=== PATIENT | female | born 1980 | race Caucasian/White ===

== ENCOUNTER 2018-12-06 08:00 | Outpatient (CLI) | payer OTHER ==
[2018-12-06 13:27] LABS: ALBUMIN 4.1 g/dL (3.2-5.5); ALBUMIN/GLOBULIN RATIO 1.6 (1.0-2.2); BILIRUBIN,TOTAL 0.9 mg/dL (0.2-1.0); CREATININE 0.7 mg/dL (0.4-1.0); TOTAL PROTEIN 6.7 g/dL (6.7-8.2)
[2018-12-06 13:38] LABS: THYROID STIMULATING HORMONE 2.87 uIU/mL (0.34-5.60)
[2018-12-06 13:49] LABS: FOLATE 15.04 ng/mL (5.90 - >24.8)
[2018-12-06 19:18] LABS: BASOPHILS % (AUTO) 0.4 %; EOSINOPHILS # (AUTO) 0.1 10^3/uL (0.0-0.7); EOSINOPHILS % (AUTO) 1.4 %; HGB - HEMOGLOBIN 13.5 g/dL (12.0-16.0); LYMPHOCYTES # (AUTO) 2.3 10^3/uL (1.5-3.5); LYMPHOCYTES % (AUTO) 34.6 %; MEAN CORPUSCULAR HEMOGLOBIN 29.6 pg (27.0-31.0); MEAN CORPUSCULAR HGB CONC 34.3 g/dL (32.0-36.0); MEAN CORPUSCULAR VOLUME 86.2 fL (81.0-99.0); MEAN PLATELET VOLUME 7.1 fL (7.9-10.8); MONOCYTES # (AUTO) 0.4 10^3/uL (0.0-1.0); MONOCYTES % (AUTO) 6.2 %; NEUTROPHILS # (AUTO) 3.7 10^3/uL (1.5-6.6); NEUTROPHILS % (AUTO) 57.4 %; PLT - PLATELET COUNT 289 10^3/uL (130-450); RED BLOOD COUNT 4.58 10^6/uL (4.20-5.40); RED CELL DISTRIBUTION WIDTH 12.9 % (12.0-15.0); WHITE BLOOD COUNT 6.5 x10^3/uL (4.8-10.8)
== END 2018-12-06 23:59 | disposition home or self-care (01) ==
LOC: LAB.N 08:00
PROVIDERS: ATTEND Nurse Practitioner
DX: R53.83 Other fatigue (principal); E55.9 Vitamin D deficiency, unspecified
CPT/HCPCS: 36415; 80053; 82306; 82607; 82746; 84443; 85025

== ENCOUNTER 2018-12-12 10:01 | Outpatient (CLI) | payer OTHER ==
--- NOTE | 2018-12-12 11:46 | Mammography Report ---
Reason: BREAST PAIN, BILATERAL NIPPLE DISCHARGE Procedure Date: 12/12/2018 Accession Number: [id number] / [id number] Procedure: KARY - Diagnostic Dig Bilat CPT Code: FULL RESULT: EXAM: Diagnostic Dig Bilat DATE: 12/12/2018 11:03 AM CLINICAL HISTORY: Diagnostic examination. History of prepectoral saline implants. The patient presents with bilateral breast pain, baseline mammogram. TECHNIQUE: (B) - Bilateral CC and MLO views were obtained. Bilateral ML views are also obtained. All views are obtained in standard and implant displaced fashion COMPARISON: None PARENCHYMAL PATTERN: (D) - The breast(s) demonstrate(s) heterogeneously dense fibroglandular parenchyma. FINDINGS: Visualized implants appear intact. There are coarse typically benign calcifications. There are no suspicious masses, calcifications, or areas of distortion. IMPRESSION: Benign findings. BI-RADS category 2. RECOMMENDATION: (ANNUAL) - Recommend routine annual screening mammography. BI-RADS CATEGORY: (2) - Benign Findings. STANDARD QUALIFYING STATEMENTS: 1. This examination was not reviewed with the aid of Computer-Aided Detection (CAD). 2. A negative or benign imaging report should not preclude biopsy if clinically suspicious findings are present. 3. Dense breasts may obscure an underlying neoplasm. 4. This examination was reviewed without the aid of 3D breast imaging (tomosynthesis).
== END 2018-12-12 10:02 | disposition home or self-care (01) ==
LOC: DI 10:01
PROVIDERS: ATTEND Nurse Practitioner
DX: N64.4 Mastodynia (principal); N64.52 Nipple discharge; Z98.82 Breast implant status
CPT/HCPCS: 77066

== ENCOUNTER 2020-05-10 14:52 | Outpatient (CLI) | payer OTHER ==
[2020-05-10 18:06] LABS: BASOPHILS % (AUTO) 0.4 %; EOSINOPHILS # (AUTO) 0.1 10^3/uL (0.0-0.7); HGB - HEMOGLOBIN 13.2 g/dL (12.0-16.0); LYMPHOCYTES # (AUTO) 1.9 10^3/uL (1.5-3.5); LYMPHOCYTES % (AUTO) 24.4 %; MEAN CORPUSCULAR HEMOGLOBIN 29.8 pg (27.0-31.0); MEAN CORPUSCULAR HGB CONC 33.5 g/dL (32.0-36.0); MEAN CORPUSCULAR VOLUME 88.9 fL (81.0-99.0); MONOCYTES # (AUTO) 0.4 10^3/uL (0.0-1.0); MONOCYTES % (AUTO) 4.5 %; NEUTROPHILS # (AUTO) 5.4 10^3/uL (1.5-6.6); NEUTROPHILS % (AUTO) 69.3 %; PLT - PLATELET COUNT 287 10^3/uL (130-450); RED BLOOD COUNT 4.43 10^6/uL (4.20-5.40); WHITE BLOOD COUNT 7.7 x10^3/uL (4.8-10.8)
[2020-05-10 18:44] LABS: ALBUMIN 4.3 g/dL (3.2-5.5); ALBUMIN/GLOBULIN RATIO 1.5 (1.0-2.2); ALKALINE PHOSPHATASE 43 IU/L (42-121); ALT ALANINE AMINOTRANSFERASE 10 IU/L (10-60); AST ASPARTATE AMINOTRANSFERASE 12 IU/L (10-42); BILIRUBIN,TOTAL 1.2 mg/dL (0.2-1.0); BUN - BLOOD UREA NITROGEN 16 mg/dL (6-20); CALCIUM 9.9 mg/dL (8.5-10.3); CARBON DIOXIDE - CO2 26 mmol/L (21-32); CHLORIDE 102 mmol/L (101-111); CHOL/HDL RATIO 2.4 (<4.4); CHOLESTEROL 142 mg/dL; CREATININE 0.8 mg/dL (0.4-1.0); GLUCOSE 99 mg/dL (70-100); HDL CHOLESTEROL 60 mg/dL; LDL CHOLESTEROL,CALCULATED 71 mg/dL; LDL/HDL RATIO 1.2 (<4.4); SODIUM 136 mmol/L (135-145); TOTAL PROTEIN 7.2 g/dL (6.7-8.2); VLDL CHOLESTEROL 11 mg/dL
== END 2020-05-10 23:59 | disposition home or self-care (01) ==
LOC: LAB.WCP 14:52
PROVIDERS: ATTEND Nurse Practitioner Family
DX: Z00.00 Encounter for general adult medical examination without abnormal findings (principal); R68.89 Other general symptoms and signs
CPT/HCPCS: 36415; 80053; 80061; 83721; 84443; 85025

== ENCOUNTER 2020-06-12 18:05 | Outpatient (CLI) | payer OTHER ==
--- NOTE | 2020-06-12 21:00 | Ultrasound Report ---
PROCEDURE: Pelvic w/Transvaginal INDICATIONS: PELVIC PAIN TECHNIQUE: Real-time scanning was performed of the pelvic organs, with image documentation. Additional endovagi nal scanning was necessary due to incomplete visualization of the adnexal and endometrial structures by transabdominal scanning. COMPARISON: None. FINDINGS: Transabdominal scanning: Limited scanning through the kidneys shows no hydronephrosis. No pathologi c free abdominal or pelvic fluid. Endovaginal scanning: Uterus: Uterus is anteverted, heterogeneous, and prominent in size at 9.4 x 8.5 x 6.1 cm. Mid anteri or subserosal fibroid measuring 5.3 x 5.2 x 5.2 cm. Mid posterior subserosal fibroid measuring 3.5 x 3.3 x 3.1 cm. The endometrium measures 11 mm in combined thickness. Small nabothian cysts. Ovaries: Within normal limits. Small ovarian follicles bilaterally. Blood flow seen in both ovaries. Right ovary measures 3.3 x 2.3 x 1.9 cm. Left ovary measures 4.7 x 2.5 x 1.3 cm. IMPRESSION: 1. Two large subserosal uterine fibroids measuring 5.3 cm and 3.5 cm. 2. Endometrial thickness measures 11 mm. 3. Ovaries are within normal limits. Reviewed by: Galo Perea MD on 06/12/2020 8:58 PM PDT Approved by: Galo Perea MD on 06/12/2020 8:58 PM PDT Station ID: [id number]
== END 2020-06-12 18:06 | disposition home or self-care (01) ==
LOC: DI 18:05
PROVIDERS: ATTEND Nurse Practitioner Family
DX: R10.2 Pelvic and perineal pain (principal); D25.2 Subserosal leiomyoma of uterus
CPT/HCPCS: 76830; 76856

== ENCOUNTER 2020-07-13 08:00 | Outpatient (CLI) | payer OTHER | END 2020-07-13 23:59 | disposition home or self-care (01) | LOC: LAB.R 08:00 | PROVIDERS: ATTEND Family Medicine | DX: N39.0 Urinary tract infection, site not specified (principal) | CPT/HCPCS: 87086 ==

== ENCOUNTER 2020-09-17 16:24 | Outpatient (CLI) | payer OTHER | END 2020-09-17 16:25 | disposition home or self-care (01) | LOC: COV 16:24 | PROVIDERS: ATTEND Obstetrics & Gynecology | DX: Z01.812 Encounter for preprocedural laboratory examination (principal); N92.0 Excessive and frequent menstruation with regular cycle; D25.9 Leiomyoma of uterus, unspecified; R10.2 Pelvic and perineal pain; Z20.822 Contact with and (suspected) exposure to COVID-19 ==

== ENCOUNTER 2020-09-20 11:47 | Outpatient (CLI) | payer OTHER ==
[2020-09-20 12:15] LABS: BASOPHILS % (AUTO) 0.3 %; EOSINOPHILS # (AUTO) 0.1 10^3/uL (0.0-0.7); EOSINOPHILS % (AUTO) 1.6 %; HGB - HEMOGLOBIN 13.4 g/dL (12.0-16.0); LYMPHOCYTES % (AUTO) 29.1 %; MEAN CORPUSCULAR HEMOGLOBIN 30.1 pg (27.0-31.0); MEAN CORPUSCULAR VOLUME 86.1 fL (81.0-99.0); MEAN PLATELET VOLUME 8.1 fL (7.9-10.8); MONOCYTES # (AUTO) 0.4 10^3/uL (0.0-1.0); MONOCYTES % (AUTO) 5.7 %; NEUTROPHILS # (AUTO) 4.4 10^3/uL (1.5-6.6); NEUTROPHILS % (AUTO) 62.9 %; PLT - PLATELET COUNT 248 10^3/uL (130-450); RED BLOOD COUNT 4.45 10^6/uL (4.20-5.40)
[2020-09-20 12:42] LABS: ALBUMIN/GLOBULIN RATIO 1.5 (1.0-2.2); ALKALINE PHOSPHATASE 46 IU/L (42-121); ALT ALANINE AMINOTRANSFERASE < 10 IU/L (10-60); AST ASPARTATE AMINOTRANSFERASE 12 IU/L (10-42); BILIRUBIN,TOTAL 0.8 mg/dL (0.2-1.0); BUN - BLOOD UREA NITROGEN 11 mg/dL (6-20); CALCIUM 9.3 mg/dL (8.5-10.3); CARBON DIOXIDE - CO2 27 mmol/L (21-32); CHLORIDE 102 mmol/L (101-111); CREATININE 0.7 mg/dL (0.4-1.0); GLUCOSE 72 mg/dL (70-100); TOTAL PROTEIN 6.7 g/dL (6.7-8.2)
== END 2020-09-20 11:48 | disposition home or self-care (01) ==
LOC: LAB 11:47
PROVIDERS: ATTEND Obstetrics & Gynecology
DX: Z01.812 Encounter for preprocedural laboratory examination (principal); N92.0 Excessive and frequent menstruation with regular cycle; D25.9 Leiomyoma of uterus, unspecified; R10.2 Pelvic and perineal pain
CPT/HCPCS: 36415; 80053; 85025; 86850; 86900; 86901

== ENCOUNTER 2020-09-22 08:16 | Day surgery (SDC) | payer OTHER ==
[2020-09-22] MEDS ORDERED: LACTATED RINGERS 1,000 ML IV ONE ×2 (08:30→14:50)
[2020-09-22] MEDS ORDERED: CELECOXIB 100 MG CAPSULE PO ONE (08:34)
[2020-09-22] MEDS ORDERED: GABAPENTIN 400 MG CAPSULE ONE (08:34)
[2020-09-22] MEDS ORDERED: ceFAZolin 2 GM/50 ML 2 GM/50 ML BAG IV ONE (08:34)
[2020-09-22] MEDS ORDERED: ACETAMINOPHEN 1,000 MG/100 ML 100 ML IV ONE (08:35)
[2020-09-22] MEDS ORDERED: PHENAZOPYRIDINE 100 MG TABLET PO ONE (08:37)
[2020-09-22 08:49] LABS: HCG UR QUAL NEGATIVE
--- NOTE | 2020-09-22 09:53 | ANESTHESIA ---
Pre-Anesthesia VS, & Labs - Diagnosis menorrhagia - Procedure [facility] Vital Signs: Temp Pulse Resp BP Pulse Ox 36.3 C L 70 15 113/76 100 09/22/20 08:48 09/22/20 08:48 09/22/20 08:48 09/22/20 08:48 09/22/20 08:48 Height: 5 ft 3.75 in Weight (kg): 71.9 kg Body Mass Index: 27.4 BMI Classification: Overweight - NPO >8 hours - Is Patient ?: No - Lab Results Current Lab Results: Laboratory Tests 09/22/20 09:15: POC Whole Bld Glucose 91 Home Medications and Allergies Home Medications: Ambulatory Orders Multivitamin 1 each PO DAILY 09/16/20 Active Medications Scopolamine HBr (Scopolamine Patch) 1 patch TOP Q3D ALEXANDER Multivitamin 1 each PO DAILY 09/16/20 Allergies/Adverse Reactions: Allergies Allergy/AdvReac Type Severity Reaction Status Date / Time Sulfa (Sulfonamide Allergy Hives Verified 09/22/20 09:03 Antibiotics) Anes History & Medical History - Anesthetic History Family history of Anesthesia Complications: Denies Family history of Malignant Hyperthermia: Denies - Medical History Cardiovascular: reports: None Pulmonary: reports: None Gastrointestinal: reports: None Urinary: reports: None Musculoskeletal: reports: None Endocrine/Autoimmune: reports: None Skin: reports: Other - Surgical History Eyes Ears Nose Throat (EENT): Tonsil/Adenoidectomy Gynecologic: Other Dermatologic: Skin cancer surgery Exam Dental: WNL Mouth Openin Fingerbreadth Neck Mobility: Normal Mallampati classification: I Thyromental Distance: 4-6 cm Respiratory: Lungs clear Cardiovascular: Regular rate Abdomen: Normal bowel sounds Extremities: No clubbing Neurological: Normal gait Mental/Cognitive Status: Alert/Oriented X3 Cognitive Status: Within normal limits Plan Anesthesia Type: General Consent for Procedure(s) Verified and Reviewed: Yes Code Status: Attempt Resuscitation ASA classification: 1-Healthy patient Is this case an emergency?: No
[2020-09-22] MEDS ORDERED: SCOPOLAMINE PATCH TOP ONE (10:03)
[2020-09-22] MEDS ORDERED: BUPIVACAINE 0.25% PF 30 ML VIAL ONE (10:55)
[2020-09-22] MEDS ORDERED: METHYLENE BLUE 0.5% 50 MG/10 ML AMPULE ONE (10:55)
[2020-09-22] MEDS ORDERED: ONDANSETRON 4 MG/2 ML VIAL ONE ×2 (11:16→14:43)
[2020-09-22] MEDS ORDERED: DEXAMETHASONE 4 MG/ML VIAL ONE (11:16)
[2020-09-22] MEDS ORDERED: LIDOCAINE-MPF 2% 5 ML VIAL ONE ×2 (11:16→11:52)
[2020-09-22] MEDS ORDERED: PROPOFOL 200 MG/20 ML VIAL IVP ONE (11:16)
[2020-09-22] MEDS ORDERED: fentaNYL 100 MCG/2 ML VIAL ONE (11:16)
[2020-09-22] MEDS ORDERED: MIDAZOLAM 2 MG/2 ML VIAL ONE (11:16)
[2020-09-22] MEDS ORDERED: ROCURONIUM 50 MG/5 ML VIAL ONE ×2 (11:17→13:54)
[2020-09-22] MEDS ORDERED: ePHEDrine 50 MG/ML VIAL IVP PRN (11:22)
[2020-09-22] MEDS ORDERED: MORPHINE 2 MG/ML CARPUJECT IVP PRN (11:22)
[2020-09-22] MEDS ORDERED: ONDANSETRON 4 MG/2 ML VIAL IVP PRN ×2 (11:22→14:33)
[2020-09-22] MEDS ORDERED: ATROPINE ABBOJECT 1 MG/10 ML SYRINGE IVP PRN (11:22)
[2020-09-22] MEDS ORDERED: METOCLOPRAMIDE 10 MG/2 ML VIAL IVP PRN (11:22)
[2020-09-22] MEDS ORDERED: fentaNYL 100 MCG/2 ML VIAL IVP PRN (11:22)
[2020-09-22] MEDS ORDERED: NALOXONE 0.4 MG/ML VIAL IVP PRN (11:22)
[2020-09-22] MEDS ORDERED: MAGNESIUM SULFATE 1 GM/2 ML VIAL ONE (11:51)
[2020-09-22] MEDS ORDERED: LACTATED RINGERS 1,000 ML IV SCH (12:00)
[2020-09-22] MEDS ORDERED: LIDOCAINE 2%-EPI 1:100000 20 ML MDV ONE ×2 (12:04→12:19)
[2020-09-22] MEDS ORDERED: BUPIVACAINE 0.25% PF 30 ML VIAL SUBQ ONE ×2 (12:18)
[2020-09-22] MEDS ORDERED: BUPIVACAINE 0.5% PF 30 ML VIAL ONE (12:19)
[2020-09-22] MEDS ORDERED: LIDOCAINE 2%-EPI 1:100000 20 ML MDV SUBQ ONE ×2 (12:19)
[2020-09-22] MEDS ORDERED: WATER FOR INJECTION,STERILE 30 ML MC ONE (13:43)
--- NOTE | 2020-09-22 14:38 | OPERATIVE REPORT ---
Operative Report - General Procedure Date: 09/22/20 Planned Procedure: TLH with BS and cysto Pre-Op Diagnosis: Menorrhagia,dysmenorrhea adn fibroids Procedure Performed: TLH with BS and cysto Post Op Diagnosis: Same - Procedure Note Primary Surgeon: Atul Parekh MD Secondary Surgeon: Kaylen Dolan MD Anesthesia Provider: Ursula Melvin Anesthesia Technique: General ET tube Pathology: uterus with tubes IV Fluids (mL): 800 Estimated Blood Loss (mL): 300 Urine Output (mL): 500
[2020-09-22] MEDS ORDERED: GLYCOPYRROLATE 1 MG/5 ML VIAL ONE (14:42)
[2020-09-22] MEDS ORDERED: NEOSTIGMINE 1 MG/1 ML 10 ML MDV ONE (14:42)
[2020-09-22] MEDS: HYDROmorphone 0.5 MG/0.5 ML SYRINGE IVP PRN ×2 (15:11→15:16)
[2020-09-22] MEDS ORDERED: HYDROmorphone 1 MG/ML CARPUJECT ONE (15:21)
[2020-09-22] MEDS: oxyCODONE 5 MG TABLET PO PRN ×2 (15:49→20:16)
--- NOTE | 2020-09-22 16:12 | OPERATIVE REPORT ---
DATE OF SERVICE: 09/22/2020 Physician: Atul Parekh MD PREOPERATIVE DIAGNOSES: 1. Menorrhagia. 2. Dysmenorrhea. 3. Fibroid uterus. POSTOPERATIVE DIAGNOSES: 1. Menorrhagia. 1. Dysmenorrhea. 2. Fibroid uterus. PROCEDURE PERFORMED: Total laparoscopic hysterectomy with bilateral salpingectomy and cystoscopy. SURGEON: Atul Parekh MD. PHOTOTYPESETTING EQUIPMENT MONITOR: Cherry Stringer MD. ANESTHESIA: General via endotracheal tube with July Melvin CRNA. ESTIMATED BLOOD LOSS: 300 mL. URINE OUTPUT: 500 mL. IV FLUIDS: 800 mL. FINDINGS: Upon entering the abdominal cavity, there were little to no adhesions. The uterus shows e vidence of large fibroids, one being on the fundus. Tubes and ovaries were free of any disease. The re is no evidence of adhesions. The appendix as well as the ureters were visualized. DESCRIPTION OF PROCEDURE: Following adequate endotracheal general anesthesia, patient was placed in the dorsal lithotomy position [facility] At this point, a pelvic examination was performed. The cervix palpated roughly 12 to 14 cm in size. The adnexa were nonpalpable. The cervix was felt to be enlarged, roughly 4 cm in diameter. At this point, she was prepped and draped in the usual fas hion. A timeout was performed, at which concerns were addressed. A speculum was then placed in the vagina. The cervix was visualized, grasped with a single-tooth tenaculum, dilated to 8 mm. The uter osacral ligaments were then both injected with 0.25% Marcaine with epinephrine with 1% lidocaine, 5 m L were placed in each uterosacral ligament. At this point, a general medical practitioner uterine manipulator was plac ed in the vagina. Care was taken to assure that the anvil went into the fornices to decrease the ris k of vaginal shortening. The balloons were insufflated. At this point, the power mule operator's gloves were c hanged, and then a stab wound was made in the subumbilical area in a vertical orientation. A 5 mm tr ocar and sheath were placed in the abdominal cavity. Following this, a laparoscope was introduced, a nd CO2 was used to insufflate the abdominal cavity. There was evidence of good insufflation. Two ad ditional ports were placed, one on the left and one on the right-hand side. These were done followin g transillumination of the abdominal wall as well as local anesthesia with Marcaine and lidocaine wit h epinephrine. Ports, 5 mm, were both placed under direct visualization. At this point, the pelvis was inspected. Uterus appeared to be large, reflecting out of the pelvis. The right fallopian tube was grasped, and then utilizing a LigaSure the mesosalpinx was cauterized and transected all the way up to the cornu of the uterus. The uteroovarian ligament was then cauterized 3 times and transected as well as the round ligament being cauterized and transected. The anterior leaf of the broad ligame nt was opened and brought out across the lower uterine segment. Uterine vessels were visualized at t his time. These were then cauterized, but not transected. The posterior leaf of the broad ligament was also cauterized and transected and carried down to the uterosacral ligaments. At this point, the uterus was moved to the patient's right-hand side, and Dr. Stringer utilized the LigaSure to cauteri ze and transect the mesosalpinx as well as the uteroovarian ligament and the round ligament. The ant erior leaf of the broad ligament was opened, as was the posterior leaf. The uterine vessels were cau terized and transected with the LigaSure. At this point, the remainder of the bladder flap was devel oped, and the bladder flap was pushed down off the lower uterine segment and off the apex of the vagi na. At this point, the anvil was palpated through the vagina, and then a Harmonic scalpel was used t o amputate the cervix from the apex of the vagina. There was evidence of good hemostasis of the enti re progress. At this point, the uterus was removed out of the pelvis and vagina, and then an Asepto syringe bulb was placed in the vagina to maintain pneumoperitoneum. The apex of the vagina was then closed utilizing V-Loc suture with intracorporeal suturing. The pelvis was inspected. No active ble eding was noted, but Surgicel was then placed over the incisions. The appendix was inspected and not ed to be normal. The uterus had previously been inspected. Those both appear to be normal. The edg e of the liver appeared to be free of disease. The abdominal cavity was suctioned clear of clot, and then photographs were taken. At this point, attention was turned to the bladder, the Peters catheter was removed, and then a cystoscope was placed. There was evidence of excellent urine flow from both ureteral orifices. There was no evidence of any defects in the bladder or stitches. The laparoscop ic incisions were closed utilizing 4-0 Monocryl subcuticular with Steri-Strips. There was some oozin g noted from the left port, so a 4x4 was folded and placed over this incision. The patient tolerated the procedure well and was taken to recovery in stable condition. Sponge and needle counts were cor rect. TD: 09/22/2020 15:41
--- NOTE | 2020-09-22 17:31 | ANESTHESIA POST OP EVALUATION ---
Anesthesia Post Eval - Post Anesthesia Eval Vitals: Last Vital Signs Temp 36.5 C 09/22/20 16:58 Pulse 60 09/22/20 16:58 Resp 18 09/22/20 16:58 BP 120/73 09/22/20 16:58 Pulse Ox 100 09/22/20 16:58 CV Function Including HR & BP: positive: Stable Pain Control: positive: Satisfactory Nausea & Vomiting: positive: Negative Mental Status: positive: Patient Participates Respiratory Status: Airway Patent Hydration Status: Satisfactory Anesthesia Complications: positive: None
[2020-09-22] MEDS: SCOPOLAMINE PATCH TOP SCH (18:04)
[2020-09-23] MEDS: oxyCODONE 5 MG TABLET PO PRN ×5 (01:06→20:19)
[2020-09-23] MEDS: SCOPOLAMINE PATCH TOP SCH (15:09)
[2020-09-23] MEDS ORDERED: KETOROLAC 30 MG/ML VIAL IVP SCH (17:00)
--- NOTE | 2020-09-23 17:17 | PROVIDER PROGRESS NOTE ---
Subjective - General Procedure Date: 09/22/20 Post Op Days: 1 Procedure Performed: TLH BS, CYSTO - Review of Systems Wound/Incisions: positive: Healing well General: positive: No symptoms (Pt C/O bladder pain. unable to void.) Genitourinary: negative: Flank pain Objective - Patient Data Vital Signs: Vital Signs x48h Temp Pulse Resp BP Pulse Ox 09/23/20 11:39 36.4 C L 63 18 103/63 100 Weight: Weight 09/21/20 09/22/20 09/23/20 23:59 23:59 23:59 Weight (kg) 71.9 kg Intake & Output: Intake and Output Totals x24h 09/21/20 09/22/20 09/23/20 23:59 23:59 23:59 Intake Total 1680 1100 Output Total 1175 1850 Balance 505 -750 - Current Medications Current Medications: Current Medications Generic Name Dose Route Start Last Admin Trade Name Freq PRN Reason Stop Dose Admin Ketorolac Tromethamine 30 mg 09/23/20 17:00 09/23/20 16:58 Ketorolac 30 Mg/Ml Vial IVP 09/28/20 16:59 30 mg ONCE ALEXANDER Administration Oxycodone HCl 5 mg 09/22/20 14:33 09/23/20 15:08 Oxycodone 5 Mg Tablet PO 5 mg Q4HR PRN Administration PAIN Scopolamine HBr 1 patch 09/22/20 10:00 09/23/20 15:09 Scopolamine Patch TOP 1 patch Q3D ALEXANDER Administration Impression/Plan - Problem List Problem List: POD # 1 SP TLH with BS and cysto. Peters place and 1400 ml urine drained. will keep over night. added toradol and motrin
[2020-09-24] MEDS: oxyCODONE 5 MG TABLET PO PRN (01:48)
[2020-09-24] MEDS: IBUPROFEN 800 MG TABLET PO PRN ×2 (01:48→08:35)
[2020-09-24 08:07] VITALS: BP 111/68
--- NOTE | 2020-09-24 08:15 | PROVIDER PROGRESS NOTE ---
Subjective - General Procedure Date: 09/22/20 Post Op Days: 2 Procedure Performed: TLH BS, CYSTO - Review of Systems Wound/Incisions: positive: Healing well General: positive: No symptoms (PAIN /10. RESTED WELL LAST NIGTH. TIDWELL DRAINING WELL.) Genitourinary: negative: Flank pain Objective - Patient Data Reviewed Vital Signs: Yes Vital Signs: Vital Signs x48h Temp Pulse Resp BP Pulse Ox 09/24/20 08:06 36.7 C 69 16 111/68 98 09/24/20 05:00 36.8 C 65 16 110/66 99 09/24/20 01:00 36.9 C 64 16 108/67 98 Weight: Weight 09/22/20 09/23/20 09/24/20 23:59 23:59 23:59 Weight (kg) 71.9 kg Intake & Output: Intake and Output Totals x24h 09/22/20 09/23/20 09/24/20 23:59 23:59 23:59 Intake Total 1680 2100 500 Output Total 1175 4400 1650 Balance 505 -2300 -1150 - Current Medications Current Medications: Current Medications Generic Name Dose Route Start Last Admin Trade Name Freq PRN Reason Stop Dose Admin Ibuprofen 800 mg 09/23/20 16:51 09/24/20 01:48 Ibuprofen 800 Mg Tablet PO 800 mg BID PRN Administration PAIN Ketorolac Tromethamine 30 mg 09/23/20 17:00 09/23/20 16:58 Ketorolac 30 Mg/Ml Vial IVP 09/28/20 16:59 30 mg ONCE ALEXANDER Administration Oxycodone HCl 5 mg 09/22/20 14:33 09/24/20 01:48 Oxycodone 5 Mg Tablet PO 5 mg Q4HR PRN Administration PAIN Scopolamine HBr 1 patch 09/22/20 10:00 09/23/20 15:09 Scopolamine Patch TOP 1 patch Q3D ALEXANDER Administration - Physical Exam Wound/Incisions: positive: Healing well, Dressing dry and intact, No drainage General Appearance: positive: No acute distress, Alert Cardiovascular: positive: Regular rate & rhythm, No murmur, No gallop Abdomen: positive: Non-tender, No organomegaly (WOUNDS WITHOUT ERYTHEMA) Back: negative: CVA tenderness (R), CVA tenderness (L) Skin: positive: Color nml Extremities: negative: Calf tenderness, Joe's sign/cords Neurologic/Psychiatric: positive: Oriented x3 Impression/Plan - Problem List Problem List: POD 32 GOOD PAIN CONTROL. TIDWELL DRAINING WILL SEND HOME. DIACHARGE MEDS: OXYCODONE 5 MG COLACE 100 MG MOTRIN 800 MG HOME SUPPLY. RTC ONE WEEK FOR TIDWELL REMOVAL.
--- NOTE | 2020-09-24 08:19 | Discharge Plan ---
Discharge Plan Problem Reviewed?: Yes Disposition: Home, Self Care Condition: Good Diet: Regular Shower Restrictions: No Driving Restrictions: Yes (NOT WHILE TAKING NARCOTICS) Weight Bearing: Full Weight No Smoking: If you smoke, Please STOP! Call for help. Follow-up with: LAM FINE MSN, [employer] WRECKER [Primary Care Provider] -
== END 2020-09-24 09:35 | disposition home or self-care (01) ==
LOC: SDS 08:16 → MS2 15:14 → OBS 15:15 → SDS 09-24 09:35
PROVIDERS: ATTEND Obstetrics & Gynecology
PROC: 0UT74ZZ Resection of Bilateral Fallopian Tubes, Percutaneous Endoscopic Approach (ICD-10-PCS; 2020-09-22)
PROC: 0UT94ZZ Resection of Uterus, Percutaneous Endoscopic Approach (ICD-10-PCS; principal; 2020-09-22 09:30)
DX: N92.0 Excessive and frequent menstruation with regular cycle (principal); D25.1 Intramural leiomyoma of uterus; N94.6 Dysmenorrhea, unspecified; R10.2 Pelvic and perineal pain; E66.3 Overweight; Z68.27 Body mass index [BMI] 27.0-27.9, adult
CPT/HCPCS: 58573; 81025; A9270; J0131; J0690; J1170; J3490; J7120

== ENCOUNTER 2020-09-28 08:00 | Outpatient (CLI) | payer OTHER | END 2020-09-28 08:01 | disposition home or self-care (01) | LOC: LAB.R 08:00 | PROVIDERS: ATTEND Obstetrics & Gynecology | DX: R30.0 Dysuria (principal) | CPT/HCPCS: 87077; 87086; 87181 ==

== ENCOUNTER 2020-10-11 18:36 | Emergency (ER) | payer OTHER ==
[2020-10-11 19:09] VITALS: BP 111/63
[2020-10-11 19:10] LABS: BASOPHILS % (AUTO) 0.6 %; EOSINOPHILS # (AUTO) 0.1 10^3/uL (0.0-0.7); HGB - HEMOGLOBIN 14.3 g/dL (12.0-16.0); LYMPHOCYTES # (AUTO) 2.2 10^3/uL (1.5-3.5); LYMPHOCYTES % (AUTO) 34.2 %; MEAN CORPUSCULAR HEMOGLOBIN 30.2 pg (27.0-31.0); MEAN CORPUSCULAR HGB CONC 35.7 g/dL (32.0-36.0); MEAN CORPUSCULAR VOLUME 84.6 fL (81.0-99.0); MEAN PLATELET VOLUME 7.8 fL (7.9-10.8); MONOCYTES # (AUTO) 0.4 10^3/uL (0.0-1.0); MONOCYTES % (AUTO) 6.7 %; NEUTROPHILS # (AUTO) 3.6 10^3/uL (1.5-6.6); NEUTROPHILS % (AUTO) 55.9 %; PLT - PLATELET COUNT 372 10^3/uL (130-450); RED BLOOD COUNT 4.74 10^6/uL (4.20-5.40); RED CELL DISTRIBUTION WIDTH 12.1 % (12.0-15.0); WHITE BLOOD COUNT 6.4 x10^3/uL (4.8-10.8)
[2020-10-11 19:11] LABS: BILIRUBIN,URINE NEGATIVE (NEGATIVE); GLUCOSE, URINE (UA) NEGATIVE (NEGATIVE); KETONES,URINE (UA) NEGATIVE (NEGATIVE); LEUKOCYTE ESTERASE, URINE SMALL (NEGATIVE); NITRITE,URINE NEGATIVE (NEGATIVE); OCCULT BLOOD,URINE LARGE (NEGATIVE); PROTEIN,URINE NEGATIVE (NEGATIVE); UROBILINOGEN,URINE 0.2 (NORMAL) E.U./dL (NORMAL)
[2020-10-11 19:12] LABS: CLARITY,URINE HAZY (CLEAR)
--- NOTE | 2020-10-11 19:15 | ED Physician Documentation ---
History of Present Illness - Stated complaint Stated Complaint: FEMALE /POST OP,SOA - Chief complaint Chief Complaint: Abd Pain - History obtained from History obtained from: Patient - Additonal information Additional information: 39-year-old female presents to the emergency department for evaluation of post hysterectomy vaginal bleeding. She underwent a TLH 09/22/[address] Parekh. Postop course was complicated by urinary retention requiring a Peters catheter as well as a subsequent urinary tract infection. She reports that postoperatively she had very little spotting or bleeding until 5 days ago when she began to develop menses like bleeding often passing large clots. She has no fevers or vomiting. After antibiotic she reports that her urinary symptoms have begun to improve. She does feel fatigued and is somewhat dizzy with exertion. She does endorse lower abdominal pelvic discomfort but not new or worsening since the procedure and somewhat improved Review of Systems Constitutional: denies: Fever, Chills Eyes: reports: Reviewed and negative Ears: reports: Reviewed and negative Nose: reports: Reviewed and negative Throat: reports: Reviewed and negative Cardiac: reports: Reviewed and negative Respiratory: reports: Reviewed and negative PD PAST MEDICAL HISTORY - Past Medical History Past Medical History: No Cardiovascular: None Respiratory: None Endocrine/Autoimmune: None GI: None : None HEENT: None Psych: Depression Musculoskeletal: None Derm: Other - Past Surgical History Past Surgical History: Yes /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: Hysterectomy, Other HEENT: Tonsil/Adenoidectomy Derm: Skin cancer surgery - Present Medications Home Medications: Ambulatory Orders Medication Instructions Recorded Confirmed Multivitamin 1 each PO DAILY 09/16/20 10/11/20 - Allergies Allergies/Adverse Reactions: Allergies Allergy/AdvReac Type Severity Reaction Status Date / Time Sulfa (Sulfonamide Allergy Hives Verified 10/11/20 18:41 Antibiotics) - Social History Does the pt smoke?: No Smoking Status: Never smoker Does the pt drink ETOH?: No Does the pt have substance abuse?: No - Immunizations Immunizations are current?: Yes - POLST Patient has POLST: No PD ED PE NORMAL - General General: Alert and oriented X 3, No acute distress, Well developed/nourished - Cardiac Cardiac: RRR, No murmur - Respiratory Respiratory: No respiratory distress, Clear bilaterally - Abdomen Abdomen: Normal bowel sounds, Soft, Non tender (Mild generalized lower pelvic discomfort without guarding or rebound. Well-healed laparoscopic incisions are seen without surrounding erythema or drainage) - Female Female : Other (Small amount of blood seen on a menstrual pad that was recently changed.) - Derm Derm: Normal color, Warm and dry, No rash - Neuro Neuro: Alert and oriented X 3 Eye Opening: Spontaneous Motor: Obeys Commands Verbal: Oriented GCS Score: 15 Results - Vitals Vitals: Vital Signs - 24 hr 10/11/20 10/11/20 18:41 19:08 Temperature 36.5 C Heart Rate 72 71 Respiratory 16 16 Rate Blood Pressure 138/98 H 111/63 O2 Saturation 100 96 Oxygen O2 Source Room air - Labs Labs: Laboratory Tests 10/11/20 10/11/20 10/11/20 19:00 19:04 19:04 WBC 6.4 RBC 4.74 Hgb 14.3 Hct 40.1 MCV 84.6 MCH 30.2 MCHC 35.7 RDW 12.1 Plt Count 372 MPV 7.8 L Neut # (Auto) 3.6 Lymph # (Auto) 2.2 [place] # (Auto) 0.4 Eos # (Auto) 0.1 Baso # (Auto) 0.0 Absolute Nucleated RBC 0.00 Nucleated RBC % 0.0 Sodium 136 Potassium 4.1 Chloride 99 L Carbon Dioxide 26 Anion Gap 11.0 BUN 12 Creatinine 0.8 Estimated GFR (MDRD) 79 L Glucose 98 Calcium 9.9 Total Bilirubin 0.9 AST 15 ALT 10 Alkaline Phosphatase 56 Total Protein 7.8 Albumin 4.6 Globulin 3.2 Albumin/Globulin Ratio 1.4 Lipase 36 Urine Color YELLOW Urine Clarity HAZY Urine pH 6.0 Ur Specific [place] <=1.005 Urine Protein NEGATIVE Urine Glucose (UA) NEGATIVE Urine Ketones NEGATIVE Urine Occult Blood LARGE H Urine Nitrite NEGATIVE Urine Bilirubin NEGATIVE Urine Urobilinogen 0.2 (NORMAL) Ur Leukocyte Esterase SMALL H Urine RBC 11-25 H Urine WBC 6-10 H Ur Squamous Epith Cells MANY Squamous H Urine Bacteria Moderate H Ur Microscopic Review INDICATED Urine Culture Comments NOT INDICATED PD MEDICAL DECISION MAKING - ED course Complexity details: reviewed results, re-evaluated patient, considered differential, d/w patient, d/w risk assessment consultant (Siomara LIEBERMAN) ED course: 39-year-old female presents the emergency department for evaluation of 5 days. Like vaginal bleeding after having a TLH 09/22/2020. This bleeding began 5 days ago and was associated with shoveling snow during her recent snow event. However her hemoglobin was rather healthy. I did consult on the phone with Dr. Stringer of [facility]. Given recent hysterectomy she elected to evaluate the patient in the emergency department and did do a pelvic exam in which she found that there was a small area of bleeding or possibly even granuloma that was cauterized with silver nitrate stick. Her manual exam did reveal that the cuff was intact without any signs of dehiscence. Patient was advised that she should continue to abstain from heavy lifting or shoveling. Continue to follow- up with OB as already scheduled. Emergent return precautions discussed for worsening symptoms. Departure - Departure Disposition: 01 Home, Self Care Clinical Impression: Vaginal bleeding, S/P hysterectomy Condition: Stable Record reviewed to determine appropriate education?: Yes Comments: Mariia you were seen in the emergency department for vaginal bleeding after recent hysterectomy. Dr. Stringer with the OB department did do a pelvic exam and did find a small area of bleeding that she cauterized with a chemical called silver nitrate. However as we discussed reassuringly your cuff is fully intact. The bleeding may be related to the shoveling you did recently with our snow event. It is very important that you avoid any heavy lifting pushing or pulling greater than 10 pounds until cleared by OB. Please continue to follow-up with OB as you are already scheduled. Do not hesitate to call their office or return to the emergency department for return of vaginal bleeding that is period like.
[2020-10-11 19:22] LABS: BACTERIA,URINE Moderate /HPF (None Seen); SQUAMOUS EPITHELIAL CELL,UR MANY Squamous (<= Few)
[2020-10-11 19:24] LABS: ALBUMIN 4.6 g/dL (3.2-5.5); ALBUMIN/GLOBULIN RATIO 1.4 (1.0-2.2); BILIRUBIN,TOTAL 0.9 mg/dL (0.2-1.0); CALCIUM 9.9 mg/dL (8.5-10.3); CREATININE 0.8 mg/dL (0.4-1.0); TOTAL PROTEIN 7.8 g/dL (6.7-8.2)
[2020-10-11] MEDS ORDERED: SILVER NITRATE APPLICATOR TOP STA (19:50)
--- NOTE | 2020-10-11 20:09 | CONSULTATION NOTE ---
Referring Provider Name of Referring Provider:: Stefanie Russell Consult Date: 10/11/20 History of Present Illness - Admitted From Admitted From:: ER - History Obtained From History obtained from: Patient and records - History of Present Illness HPI Comment/Other: Patient is a 39 yo s/p TLH here with vaginal bleeding. She underwent a TLH 09/22/[address] Parekh. Postop course was complicated by urinary retention requiring a Peters catheter as well as a subsequent urinary tract infection. She reports that postoperatively she had very little spotting or bleeding until 5 days ago when she began to develop menses like bleeding often passing large clots. She has no fevers or vomiting. After antibiotic she reports that her urinary symptoms have begun to improve. She does endorse lower abdominal pelvic discomfort but not new or worsening since the procedure and somewhat improved. Bleeding started about 5 days ago when she had been shoveling snow to clear her car. She has returned to work at the [employer] on light duty. She has been judicious about avoiding heavy lifting but does walk significant distances and climbs stairs frequently. No LOF from the vagina. Bleeding started out as spotting and then flow became consistent with menses. At one point, she was passing clots into the toilet when voiding. 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, Other HEENT: reports: Tonsil/Adenoidectomy Derm: reports: Skin cancer surgery - POLST Patient has POLST: No Meds/Allgy - Home Medications Home Medications: Ambulatory Orders Medication Instructions Recorded Confirmed Multivitamin 1 each PO DAILY 09/16/20 10/11/20 - Allergies Allergies/Adverse Reactions: Allergies Allergy/AdvReac Type Severity Reaction Status Date / Time Sulfa (Sulfonamide Allergy Hives Verified 10/11/20 18:41 Antibiotics) Review of Systems - Other Findings Other Findings: As per HPI, otherwise remaining systems are negative Exam - Vital Signs Reviewed Vital Signs: Yes Vital Signs: Vital Signs x48h Temp Pulse Resp BP Pulse Ox 10/11/20 19:08 71 16 111/63 96 10/11/20 18:41 97.7 F 72 16 138/98 H 100 - Physical Exam General Appearance: positive: No acute distress Respiratory: positive: No respiratory distress Cardiovascular: positive: Other (RR) Abdomen: positive: Non-tender, No distention, Other (soft) Skin: positive: Color nml, Warm, Dry Extremities: positive: No pedal edema Neurologic/Psychiatric: positive: Mood/affect nml, Other (Alert and oriented) Comments/Other: PELVIC: NEFG, NL BSUMA. No active bleeding at introitus. Speculum inserted, small amoutn of dark blood in vaginal vault. No active flow. Left corner of vagina cuff ahd BRB. Blood cleared with swab, no active bleeding noted under extended observation. Possibility of raw edge vs granuloma at left corner. Silver nitrate applied out of abundance of caution. BME reveals cuff to be intact by palpation. No fluctuance, induration, warmth, or TTP. Exam glove showed dark, old blood only. Conclusion/Plan - Diagnosis Diagnosis: Post op bleeding - Plan Plan: Vaginal cuff visualized and palpates as intact No need for surgical intervention at this time Suspect irritation of cuff edge with physical exertion greater than optimal in the recent post op period Recommend that patient try to restrict higher exertion activities Reviewed that walking and activity will increase friction at cuff edges and may result in bleeding Silver nitrate applied to cuff edge to reduce risk. Reviewed warning signs and indications to call clinic vs return to ED Fu with Dr. Parekh in clinic - Lab Results Lab results reviewed: Yes Fish Bones: 10/11/20 19:04 10/11/20 19:04
== END 2020-10-11 20:36 | disposition home or self-care (01) ==
LOC: ED 18:36
DX: N99.820 Postprocedural hemorrhage of a genitourinary system organ or structure following a genitourinary system procedure (principal); Y83.6 Removal of other organ (partial) (total) as the cause of abnormal reaction of the patient, or of later complication, without mention of misadventure at the time of the procedure
CPT/HCPCS: 36415; 80053; 81001; 81003; 83690; 85025; 87086; 99283; 99284

== ENCOUNTER 2023-01-18 08:00 | Outpatient (CLI) | payer OTHER ==
[2023-01-18 18:14] LABS: BILIRUBIN,URINE NEGATIVE (NEGATIVE); GLUCOSE, URINE (UA) NEGATIVE (NEGATIVE); KETONES,URINE (UA) NEGATIVE (NEGATIVE); LEUKOCYTE ESTERASE, URINE NEGATIVE (NEGATIVE); NITRITE,URINE NEGATIVE (NEGATIVE); OCCULT BLOOD,URINE NEGATIVE (NEGATIVE); PH,URINE 5.5 PH (5.0-7.5); PROTEIN,URINE NEGATIVE (NEGATIVE); UROBILINOGEN,URINE 0.2 (NORMAL) E.U./dL (NORMAL)
[2023-01-18 18:22] LABS: BACTERIA,URINE Few /HPF (None Seen); CLARITY,URINE CLEAR (CLEAR); RBC,URINE 0-5 /HPF (0-5); SQUAMOUS EPITHELIAL CELL,UR FEW Squamous (<= Few); WBC,URINE 0-3 /HPF (0-5)
== END 2023-01-18 23:59 | disposition home or self-care (01) ==
LOC: LAB.R 08:00
PROVIDERS: ATTEND Physician Assistant
DX: R35.0 Frequency of micturition (principal)
CPT/HCPCS: 81001; 87086

== ENCOUNTER 2023-02-06 07:57 | Outpatient (CLI) | payer OTHER ==
[2023-02-06 11:55] LABS: BASOPHILS % (AUTO) 0.6 %; EOSINOPHILS # (AUTO) 0.1 10^3/uL (0.0-0.7); EOSINOPHILS % (AUTO) 1.8 %; HCT - HEMATOCRIT 40.8 % (37.0-47.0); LYMPHOCYTES # (AUTO) 2.7 10^3/uL (1.5-3.5); MEAN CORPUSCULAR HEMOGLOBIN 29.2 pg (27.0-31.0); MEAN CORPUSCULAR HGB CONC 34.3 g/dL (32.0-36.0); MONOCYTES # (AUTO) 0.4 10^3/uL (0.0-1.0); MONOCYTES % (AUTO) 5.4 %; NEUTROPHILS # (AUTO) 3.6 10^3/uL (1.5-6.6); NEUTROPHILS % (AUTO) 52.5 %; PLT - PLATELET COUNT 331 10^3/uL (130-450); RED CELL DISTRIBUTION WIDTH 12.1 % (12.0-15.0); WHITE BLOOD COUNT 6.9 x10^3/uL (4.8-10.8)
[2023-02-06 11:56] LABS: RHEUMATOID FACTOR NEGATIVE (Negative)
[2023-02-06 12:10] LABS: BILIRUBIN,URINE NEGATIVE (NEGATIVE); GLUCOSE, URINE (UA) NEGATIVE (NEGATIVE); KETONES,URINE (UA) NEGATIVE (NEGATIVE); LEUKOCYTE ESTERASE, URINE NEGATIVE (NEGATIVE); NITRITE,URINE NEGATIVE (NEGATIVE); OCCULT BLOOD,URINE NEGATIVE (NEGATIVE); PROTEIN,URINE NEGATIVE (NEGATIVE); UROBILINOGEN,URINE 0.2 (NORMAL) E.U./dL (NORMAL)
[2023-02-06 12:12] LABS: CLARITY,URINE CLEAR (CLEAR)
[2023-02-06 12:20] LABS: THYROID STIMULATING HORMONE 2.19 uIU/mL (0.34-5.60)
[2023-02-06 12:24] LABS: BACTERIA,URINE Few /HPF (None Seen); RBC,URINE 0-5 /HPF (0-5); SQUAMOUS EPITHELIAL CELL,UR MOD Squamous (<= Few); WBC,URINE 0-3 /HPF (0-5)
[2023-02-06 21:14] LABS: ALBUMIN 4.1 g/dL (3.2-5.5); ALBUMIN/GLOBULIN RATIO 1.3 (1.0-2.2); ALKALINE PHOSPHATASE 44 IU/L (42-121); ALT ALANINE AMINOTRANSFERASE 13 IU/L (10-60); AST ASPARTATE AMINOTRANSFERASE 14 IU/L (10-42); BILIRUBIN,TOTAL 0.8 mg/dL (0.2-1.0); BUN - BLOOD UREA NITROGEN 13 mg/dL (6-20); CALCIUM 9.2 mg/dL (8.5-10.3); CARBON DIOXIDE - CO2 28 mmol/L (21-32); CHLORIDE 103 mmol/L (101-111); CHOL/HDL RATIO 2.3 (<4.4); CHOLESTEROL 135 mg/dL; CREATININE 0.8 mg/dL (0.4-1.0); GFR - MDRD 78 (>89); GLUCOSE 97 mg/dL (70-100); HDL CHOLESTEROL 58 mg/dL; LDL CHOLESTEROL,CALCULATED 63 mg/dL; LDL/HDL RATIO 1.1 (<4.4); POTASSIUM 4.2 mmol/L (3.5-5.0); SODIUM 137 mmol/L (135-145); TOTAL PROTEIN 7.3 g/dL (6.7-8.2); TRIGLYCERIDES 71 mg/dL; VLDL CHOLESTEROL 14 mg/dL
[2023-02-06 21:35] LABS: CRP - C-REACTIVE PROTEIN < 1.0 mg/dL (0-1.0)
[2023-02-07 17:09] LABS: ANTI-DNA (DS) AB QN 3 IU/mL (0-9); CENTROMERE B ANTIBODIES <0.2 AI (0.0-0.9); CHROMATIN ANTIBODIES <0.2 AI (0.0-0.9); JO-1 AB <0.2 AI (0.0-0.9); RIBOSOMAL P ANTIBODIES <0.2 AI (0.0-0.9); RNP ANTIBODIES <0.2 AI (0.0-0.9); SCLERODERMA-70 ANTIBODIES <0.2 AI (0.0-0.9); SJOGREN'S ANTI-SS-A <0.2 AI (0.0-0.9); SJOGREN'S ANTI-SS-B <0.2 AI (0.0-0.9); SMITH ANTIBODIES <0.2 AI (0.0-0.9); SMITH/RNP ANTIBODIES <0.2 AI (0.0-0.9)
[2023-02-07 20:08] LABS: CYCLIC CITRULLINATED PEP IGG/A 6 units (0-19)
== END 2023-02-06 07:58 | disposition home or self-care (01) ==
LOC: LAB.N 07:57
PROVIDERS: ATTEND Physician Assistant
DX: M25.50 Pain in unspecified joint (principal); Z13.9 Encounter for screening, unspecified; R35.0 Frequency of micturition; M35.3 Polymyalgia rheumatica
CPT/HCPCS: 36415; 80053; 80061; 81001; 83516; 83721; 84443; 85025; 85651; 86140; 86200; 86225; 86235; 86430; 87086

== ENCOUNTER 2023-03-27 19:50 | Emergency (ER) | payer OTHER ==
[2023-03-27 20:08] VITALS: BP 149/95; O2SAT 99
[2023-03-27 20:36] LABS: BILIRUBIN,URINE NEGATIVE (NEGATIVE); GLUCOSE, URINE (UA) NEGATIVE (NEGATIVE); KETONES,URINE (UA) NEGATIVE (NEGATIVE); LEUKOCYTE ESTERASE, URINE NEGATIVE (NEGATIVE); NITRITE,URINE NEGATIVE (NEGATIVE); OCCULT BLOOD,URINE TRACE-INTA (NEGATIVE); PROTEIN,URINE NEGATIVE (NEGATIVE); UROBILINOGEN,URINE 0.2 (NORMAL) E.U./dL (NORMAL)
[2023-03-27 20:38] LABS: CLARITY,URINE CLEAR (CLEAR); HCG UR QUAL NEGATIVE
[2023-03-27] MEDS: LIDOCAINE 1% 2 ML VIAL MC ONE (20:38)
[2023-03-27] MEDS: cefTRIAXone 1 GM VIAL IM STA (20:39)
--- NOTE | 2023-03-27 20:48 | ED Physician Documentation ---
History of Present Illness - Stated complaint Stated Complaint: - Chief complaint Chief Complaint: General - History obtained from History obtained from: Patient - History of Present Illness Timing: How many days ago (3) Pain level max: 4 Pain level now: 4 - Additonal information Additional information: 42-year-old female states that approximately 3 days ago started having dysuria, urinary frequency and hematuria. She has had low back discomfort as well. Chills, mild nausea. No change in sexual partners. No vaginal bleeding or discharge. She has had a hysterectomy. Feels similar to prior UTIs. No fevers. No vomiting. No diarrhea or constipation. No history of kidney stones. 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 HEENT: Tonsil/Adenoidectomy Derm: Skin cancer surgery - Present Medications Home Medications: Ambulatory Orders Medication Instructions Recorded Confirmed Multivitamin 1 each PO DAILY 09/16/20 10/11/20 Cefpodoxime Proxetil [Vantin] 100 mg PO Q12H #14 tablet 03/27/23 - Allergies Allergies/Adverse Reactions: Allergies Allergy/AdvReac Type Severity Reaction Status Date / Time Sulfa (Sulfonamide Allergy Hives Verified 10/11/20 18:41 Antibiotics) - Social History Does the pt smoke?: No Smoking Status: Never smoker Does the pt drink ETOH?: No Does the pt have substance abuse?: No - Immunizations Immunizations are current?: Yes - POLST Patient has POLST: No PD ED PE NORMAL - Vitals Vital signs reviewed: Yes - General General: Alert and oriented X 3, No acute distress - HEENT HEENT: Moist mucous membranes - Neck Neck: Supple, no meningeal sign - Cardiac Cardiac: RRR - Respiratory Respiratory: No respiratory distress, Clear bilaterally - Abdomen Abdomen: Soft, Non tender, Non distended - Back Back: No CVA TTP, No spinal TTP - Derm Derm: Warm and dry - Neuro Neuro: Alert and oriented X 3 - Psych Psych: Normal mood, Normal affect Results - Vitals Vitals: Vital Signs - 24 hr 03/27/23 20:00 Temperature 37.2 C Heart Rate 82 Respiratory 16 Rate Blood Pressure 149/95 H O2 Saturation 99 Oxygen O2 Source Room air - Labs Labs: Laboratory Tests 03/27/23 03/27/23 20:28 20:28 Urine Color YELLOW Urine Clarity CLEAR Urine pH 5.0 Ur Specific [place] 1.025 Urine Protein NEGATIVE Urine Glucose (UA) NEGATIVE Urine Ketones NEGATIVE Urine Occult Blood TRACE-INTA Urine Nitrite NEGATIVE Urine Bilirubin NEGATIVE Urine Urobilinogen 0.2 (NORMAL) Ur Leukocyte Esterase NEGATIVE Ur Microscopic Review NOT INDICATED Urine Culture Comments NOT INDICATED Urine HCG, Qual NEGATIVE PD Medical Decision Making - ED course Complexity details: considered differential, d/w patient ED course: Patient is well-appearing, nontoxic. Afebrile. Symptoms are consistent with UTI. She had urinated just prior to giving a urine sample, we will treat based on symptoms. Given the chills and back pain, given a dose of Rocephin here. We will place on oral antibiotics for home. Patient will follow-up with her doctor for further care especially if she fails to improve as expected. Patient counseled regarding signs and symptoms for which I believe and urgent re- evaluation would be necessary. Patient with good understanding of and agreement to plan and is comfortable going home at this time This document was made in part using voice recognition software. While efforts are made to proofread this document, sound alike and grammatical errors may occur. Departure - Departure Disposition: 01 Home, Self Care Clinical Impression: UTI (urinary tract infection) Qualifiers: Urinary tract infection type: acute cystitis Hematuria presence: without hematuria Qualified Code(s): N30.00 - Acute cystitis without hematuria Condition: Good Instructions: ED UTI Cystitis Female Follow-Up: Delmi Earl PA [Primary Care Provider] - Within 1 week Prescriptions: Cefpodoxime Proxetil [Vantin] 100 mg PO Q12H #14 tablet Comments: Your prescription was sent to [facility] [place]. Take all antibiotics until gone. If your symptoms are not improving as expected, you need to return or follow up with your doctor for further evaluation. Forms: PCP List Discharge Date/Time: 03/27/23 21:04
--- OUTSIDE RECORDS SUMMARY | 2023-03-27 21:00 | EXTERNAL MEDICAL SUMMARY RPT | Continuity of Care Document ---
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 Role Phone Black Wong Unavailable Unavailable Allergies and Intolerances date description facility reaction severity (no date) Sulfa (Sulfonamide Antibiotics) [facility] (no reaction) (no severity) Medications date description facility 2023-03-02 00:00 Cyclobenzaprine [facility] Problems date description facility 2023-03-02 00:00 Thoracic back pain [facility] 2023-03-02 00:00 Epigastric pain [facility] Procedures date description facility 2023-03-02 00:00 X-ray of chest, single [facility] Results/Labs test date facility value unit notes Social History date description facility 2023-03-02 00:00 Never smoked tobacco (finding) [facility] Vital Signs date measurement value units 2023-03-02 00:00 BMI 29.2 kg/m2 2023-03-02 00:00 BP_diastolic 72 mmHg 2023-03-02 00:00 BP_systolic 129 mmHg 2023-03-02 00:00 heart_rate 66 /min 2023-03-02 00:00 height_metric 162.56 cm 2023-03-02 00:00 height_standard 64 in 2023-03-02 00:00 o2_saturation 99 % 2023-03-02 00:00 respiration_rate 14 /min 2023-03-02 00:00 temperature_metric 36.83 C 2023-03-02 00:00 temperature_standard 98.3 F 2023-03-02 00:00 weight_metric 77.11 kg 2023-03-02 00:00 weight_standard 170 lb
== END 2023-03-27 21:04 | disposition home or self-care (01) ==
LOC: ED 19:50
DX: N30.00 Acute cystitis without hematuria (principal); Z87.440 Personal history of urinary (tract) infections
CPT/HCPCS: 81001; 81003; 81025; 87086; 96372; 99283

== ENCOUNTER 2023-04-13 10:32 | Outpatient (CLI) | payer OTHER ==
--- NOTE | 2023-04-16 11:44 | Ultrasound Report ---
LIMITED ULTRASOUND OF RIGHT BREAST: 04/13/2023 CLINICAL: Palpable right breast lump. Comparison is made to exam dated: 12/12/2018 mammogram - [facility]. Color flow ultrasound of the right breast 1 o'clock, and retroareolar regions was performed. [place] sc jeanie images of the real-time examination were reviewed. No significant findings in the breast tissue. IMPRESSION: NEGATIVE There is no sonographic evidence of malignancy. There is no abnormality seen in the right breast to correspond with the palpable abnormality in the u pper inner quadrant, however, clinical correlation and clinical followup are recommended. There is n o abnormality seen in the right breast to correspond with the mammography finding which likely repres ents normal fibroglandular tissue. Return to annual mammogram screening schedule is recommended. This exam was interpreted at Station ID: [id number]. Electronically Signed By: Julián Vences M.D. lc/:04/13/2023 12:23:02 Ultrasound BI-RADS: 1 Negative BI-RADS CATEGORY: (1) - 1 RECOMMENDATION: (ANNUAL) - Recommend routine annual screening mammography. [id number] return to screening LATERALITY: (B)
--- NOTE | 2023-04-16 11:44 | Mammography Report ---
BILATERAL DIGITAL DIAGNOSTIC MAMMOGRAM 3D/2D WITH CLEAVAGE WITH AUGMENTATION: 04/13/2023 CLINICAL: Palpable right breast lump. Diffuse right breast pain. Left skin changes. Comparison is made to exam dated: 12/12/2018 mammogram - [facility]. Both breasts are heterogeneously dense, which may obscure small masses (category c / 51-75% glandular tissue). There is an asymmetry in the right breast anterior depth central to the nipple seen on the mediolater al oblique view only. There is an asymmetry in the left breast anterior depth central to the nipple seen on the mediolatera l oblique view only. No other significant masses or calcifications are seen in either breast. Implants present. IMPRESSION: INCOMPLETE: NEEDS ADDITIONAL IMAGING EVALUATION The asymmetry in the right breast anterior depth central to the nipple seen on the mediolateral obliq ue view only is indeterminate. An ultrasound is recommended. The asymmetry in the left breast anterior depth central to the nipple seen on the mediolateral obliqu e view only is indeterminate. An ultrasound is recommended. There is no abnormality seen in the right breast to correspond with the diffuse pain, however, clinic al correlation and clinical followup are recommended. There is no abnormality seen in the right [address] to correspond with the palpable abnormality (upper inner quadrant), however, ultrasound is recomme nded. There is no abnormality seen in the left breast to correspond with the skin lesion (rash lower inner quadrant), however, ultrasound is recommended. Based on the Tyrer Cuzick model (a risk assessment model) the patients lifetime risk is 11.3% and he r 10 year risk is 1.9%. According to the ACR, ACS, and NCCN guidelines, an annual breast MRI exam kalani ng with mammogram is recommended if the patients lifetime risk is 20% or greater. This exam was interpreted at Station ID: [id number]. NOTE: For mammograms, a report in lay terms will be sent to the patient. Approximately 15% of breast malignancies will not be visualized mammographically. In the management of a palpable breast mass, a negative mammogram must not discourage biopsy of a clinically suspicious lesion. Electronically Signed By: Julián Vences M.D. lc/:04/13/2023 12:19:02 ACR BI-RADS Category 0: Incomplete 3340F PARENCHYMAL PATTERN: (D) - The breast(s) demonstrate(s) heterogeneously dense fibroglandular parenchy ma. BI-RADS CATEGORY: (0) - 0 Ultrasound [id number] Immediate follow-up LATERALITY: (B)
--- NOTE | 2023-04-16 11:45 | Ultrasound Report ---
LIMITED ULTRASOUND OF LEFT BREAST: 04/13/2023 CLINICAL: Follow up, left breast skin lesion. Comparison is made to exam dated: 12/12/2018 mammogram - [facility]. Color flow ultrasound of the left breast 7-10 o'clock, and retroareolar regions was performed. Sheehan scale images of the real-time examination were reviewed. There is a benign 0.6 cm x 0.4 cm x 0.3 cm micro cyst in the left breast at 10 o'clock middle depth 7 cm from the nipple. This correlates as an incidental finding. IMPRESSION: BENIGN There is no sonographic evidence of malignancy. The 0.6 cm x 0.4 cm x 0.3 cm micro cyst in the left breast is benign. There is no abnormality seen in the left breast to correspond with the skin lesion in the lower inner quadrant, however, clinical correlation and clinical followup are recommended. There is no abnormal ity seen in the left breast to correspond with the mammography finding which likely represents normal fibroglandular tissue. Return to annual mammogram screening schedule is recommended. This exam was interpreted at Station ID: [id number]. Electronically Signed By: Julián Vences M.D. lc/:04/13/2023 12:21:38 Ultrasound BI-RADS: 2 Benign BI-RADS CATEGORY: (2) - 2 RECOMMENDATION: (ANNUAL) - Recommend routine annual screening mammography. [id number] return to screening LATERALITY: (B)
== END 2023-04-13 10:33 | disposition home or self-care (01) ==
LOC: DI 10:32
PROVIDERS: ATTEND Physician Assistant Medical
DX: N64.4 Mastodynia (principal); R92.8 Other abnormal and inconclusive findings on diagnostic imaging of breast; N60.02 Solitary cyst of left breast

== ENCOUNTER 2023-05-24 14:41 | Outpatient (CLI) | payer OTHER ==
--- NOTE | 2023-05-25 08:41 | XRAY Report ---
PROCEDURE: Thoracic Spine 3 View INDICATIONS: BACK PAIN,THORACIC REGION TECHNIQUE: 3 views of the thoracic spine were acquired. COMPARISON: None. FINDINGS: Bones: No fractures or dislocations. No suspicious bony lesions. Trace retrolisthesis of C4 on C5. Mild degenerative disc disease at T6-T7 and T7-T8. 12 pairs of ribs are noted, and appear intact wher e visualized. The 12th ribs are rudimentary. Soft tissues: No paravertebral stripe thickening. IMPRESSION: 1. Mild degenerative disc disease. 2. Trace retrolisthesis of C4-C5. Consider cervical spine x-ray. Reviewed by: Bayron Quick MD on 05/25/2023 8:40 AM PDT Approved by: Bayron Quick MD on 05/25/2023 8:40 AM PDT Station ID: [id number]
--- NOTE | 2023-05-25 08:45 | XRAY Report ---
PROCEDURE: Lumbar Spine Complete INDICATIONS: BACK PAIN,LUMBAR WITH RAEIDULOPTHY TECHNIQUE: 4 views of the lumbar spine were acquired. COMPARISON: None. FINDINGS: Bones: 4 [id number] vertebrae are present. L5 is sacralized. There is normal bony alignment. N o vertebral body compression fractures. No suspicious bony lesions. No pars defects. Note is made o f mild sacroiliac joint degeneration bilaterally. Soft tissues: Overlying bowel gas pattern is normal. No suspicious soft tissue calcifications. IMPRESSION: 1. Transitional anatomy with sacralization of L5. 2. No pars defects. 3. Mild degenerative joint disease in sacrum iliac joints bilaterally. 4. If radiculopathy symptoms persist, consider MRI. Reviewed by: Bayron Quick MD on 05/25/2023 8:44 AM PDT Approved by: Bayron Quick MD on 05/25/2023 8:44 AM PDT Station ID: [id number]
--- NOTE | 2023-05-25 08:46 | XRAY Report ---
PROCEDURE: Shoulder 3 View RT INDICATIONS: SHOULDER PAIN RIGHT TECHNIQUE: 4 views of the shoulder were acquired. COMPARISON: None. FINDINGS: Bones: No fractures or dislocations. No suspicious bony lesions. Mild acromioclavicular and glenohu meral joint degeneration. Visualized ribs appear intact. Soft tissues: No suspicious soft tissue calcifications. The visualized lungs are within normal limi ts. Surgical clips in the right axilla. IMPRESSION: Mild osteoarthritic changes. Reviewed by: Bayron Quick MD on 05/25/2023 8:45 AM PDT Approved by: Bayron Quick MD on 05/25/2023 8:45 AM PDT Station ID: [id number]
== END 2023-05-24 14:42 | disposition home or self-care (01) ==
LOC: DI 14:41
PROVIDERS: ATTEND Physician Assistant
DX: M25.511 Pain in right shoulder (principal); M19.011 Primary osteoarthritis, right shoulder; M53.3 Sacrococcygeal disorders, not elsewhere classified; M51.14 Intervertebral disc disorders with radiculopathy, thoracic region; M43.12 Spondylolisthesis, cervical region